=== PATIENT | male | born 1985 | race Hispanic/Latino ===

== ENCOUNTER 2016-10-10 12:15 | Emergency (ER) | payer SELFPAY ==
[2016-10-10 12:18] VITALS: BP 144/97; PULSE 81; RESP 14; O2SAT 99
[2016-10-10] MEDS ORDERED: Fluorescein 0.6 mg Ophthalmic Strip ONE (12:38)
[2016-10-10] MEDS ORDERED: 0.9% Sodium Chloride Inhalation Solution ONE (12:38)
[2016-10-10] MEDS ORDERED: Tetracaine 0.5% 4 mL Ophthalmic Solution ONE (12:39)
--- NOTE | 2016-10-10 13:11 | ED.REPORT ---
HPI-Eye Problem Date of Service October 10, 2016 ED Provider: Ronak Damon PA-C Tavon is otherwise healthy 31-year-old male presented with a chief complaint of left eye irritation. Referred by Dr. Galan at [facility] out of concern for a foreign body in the cornea. 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 He reports using a molar that was not working well and was treating fumes. He was wearing safety glasses but noted irritation in his left eye after which he rubbed his eye quite vigorously. Admits to using a outer diameter grinder tool 2 days ago. Denies any recollection of direct trauma. Admits to photophobia and a foreign body sensation. He is able to keep the eye open and reports that he can see something in his cornea in the mirror. Denies reduced visual acuity, use of contact lenses, exposure to others with red eyes. Nursing Notes Stated Complaint: LEFT EYE IRRITATION/L AND I Chief Complaint: Eye Nursing Notes Reviewed: Yes Allergies: Coded Allergies: No Known Allergies (Unverified , 10/10/16) Scheduled Erythromycin Ophth Oint (Erythromycin Ophth Oint) 3.5 Gm Oint...g. 1 APPL LEFT_ EYE QID General Time Seen by MD: 12:32 Chief Complaint Redness Past Medical History Past Medical History Denies Review of Systems Review of Systems Note: Negative unless stated otherwise in history of present illness Physical Exam General: Well appearing, well developed, well nourished, no acute distress. Head: Atraumatic, normocephalic. Eyes: Right eye normal to inspection. Conjunctival injection noted in left eye. Small dark spot noted in the cornea at the 7 o'clock position to the pupil. Negative discharge. Visual acuity 20/20 bilaterally and combined. PERRL, EOMI. Patient holds the eye open without difficulty. ENT: Voice clear, hearing grossly intact. Respiratory: No respiratory distress, no increased work of breathing. Speaks in complete sentences. Skin: Warm and dry. Neurological: Grossly nonfocal. Psychological: alert and oriented. Speech appropriate, linear and logical. Behavior appropriate. Initial Vital Signs Vital Signs (First) Date Time Temp Pulse Resp B/P Pulse Ox O2 Delivery O2 Flow Rate FiO2 10/10/16 12:18 36.4 81 14 144/97 99 Room Air Initial VS: Vital signs abnormal (elevated blood pressure) Procedures Foreign Body Removal - Eye Time: 13:42 Procedure Performed by: ED physician (Dr. Garcia) Consent / Setup / Site Prep: Consent from patient, Hand hygiene observed Eye / Location / # FB: Left eye, Cornea, Single foreign body Anesthesia/Equipment/Procedure: Tetracaine, Slit lamp used, Cotton swab removal , Needle removal, [place] removal, Rust ring partial removal Post-Procedure / Complications: Partial removal, No complications, Tolerated procedure well, Patient stable Re-Eval/Medical Decision Med Decision/Clinical Course Otherwise healthy 31-year-old male presents to the chief complaint of left eye irritation. States that irritation began yesterday while he was working as a electrical engineering technologist. He reports wearing safety glasses. He reports working with a outer diameter grinder tool 2 days ago but can recall no trauma. Examination with a slit lamp reveals apparent foreign body on the anterior cornea. PERRL, EOMI. Anterior chamber clear. Conjunctivae injected. I believe his irritation is most likely caused by the foreign body and have little concern for a penetrating globe injury, infectious keratitis, infectious conjunctivitis, glaucoma. I discussed this case with Dr. Garcia, who met with and examined the patient. Dr. Garcia removed the foreign body and rust ring. According to his recommendations I discharged patient with a prescription for erythromycin ointment, referral for ophthalmology follow-up, emergency return precautions, advice regarding [id number] analgesia. Patient verbalizes understanding of and consent to the plan. Discharge & Departure Primary Impression: Foreign body in cornea, left eye, initial encounter Disposition: Home Discharge Condition All VS Reviewed: Yes Condition: Stable Patient Instructions: Corneal Abrasion (ED) Additional Instructions: Evaluation for left eye irritation in the emergency department included history and physical examination which revealed small foreign body attached to the cornea. Dr. Garcia removed this as well as a small amount of rust that had formed. This will be treated as a corneal abrasion going forward. I write a prescription for erythromycin ointment to be applied 4 times a day for one week to prevent infection. Beware this might make your vision in that eye slightly blurred. The pain is best treated with 400 mg of ibuprofen (Advil, Motrin) every 6 hours , or 1000 mg of acetaminophen (Tylenol) every 6 hours. These drugs can be taken at the same time for more severe pain. I have provided you a referral to an cs associate. Please contact them this afternoon and arrange to be seen in 3 or 4 days to be sure this is progressing as expected. Please return to emergency department for increasing pain or changes in your vision. Referrals: Ruma Garber MD EDSupervising Provider for APC: Carlos Garcia MD copies to: Ruma Garber MD, Seth PA-C October 10, 2016 13:11
[2016-10-10] MEDS ORDERED: ERYT1OIN7 LEFT_EYE (13:44)
[2016-10-10 14:09] VITALS: BP 129/68; PULSE 79; RESP 17; O2SAT 98
== END 2016-10-10 14:10 | disposition home or self-care (01) ==
LOC: SED 12:15
DX: T15.02XA Foreign body in cornea, left eye, initial encounter (principal); X58.XXXA Exposure to other specified factors, initial encounter; Y92.59 Other trade areas as the place of occurrence of the external cause; Y93.H2 Activity, gardening and landscaping; Y99.0 Civilian activity done for income or pay